=== PATIENT | male | born 1955 | race African-American/Black ===

== ENCOUNTER 2016-11-03 11:06 | Emergency (ER) | payer OTHER ==
[~2016-11-03] VITALS: Wt 70.0 kg
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
[2016-11-03] MEDS ORDERED: HYDROCODONE/APAP (5/325) TAB PO ONE (16:00)
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
--- NOTE | 2016-11-03 17:30 | RADRPT ---
PROCEDURE: XR Right Tibia and Fibula. CLINICAL INDICATION: Trauma. Right lower leg pain. TECHNIQUE: Two views. Frontal and lateral. COMPARISON: No prior studies are available for comparison. FINDINGS: There is no fracture or dislocation. The soft tissues are normal. There are severe degenerative changes of the tibiotalar joint. There is no lytic or blastic lesion. There is no radiopaque foreign body. IMPRESSION: 1. 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 2. Otherwise unremarkable images of the right tibia and fibula. RPTAT: QQ .Saul Mon MD, Date Time Electronically viewed and signed by .Saul Mno MD, on 11/03/2016 17:30 .R/
[2016-11-03] MEDS ORDERED: ACET500C5 PO (17:41)
[2016-11-03] MEDS ORDERED: TRAM50TA2 PO (17:41)
== END 2016-11-03 18:14 | disposition home or self-care (01) ==
LOC: FTE 11:06
DX: S42.401A Unspecified fracture of lower end of right humerus, initial encounter for closed fracture (principal); F17.210 Nicotine dependence, cigarettes, uncomplicated; R51 Headache; Y08.89XA Assault by other specified means, initial encounter
CPT/HCPCS: 29105; 70450; 70486; 71100; 72125; 73080; 73130; 73590; 73610; Z7502; Z7610